=== PATIENT | female | born 1990 | race Caucasian/White ===

== ENCOUNTER 2019-04-18 07:15 | Inpatient (IN) | payer OTHER ==
[2019-04-18] MEDS: ELECTROLYTE-148 SOLN 1,000 ML IV SCH ×2 (08:00→15:47)
[2019-04-18] MEDS ORDERED: OXYTOCIN 30 UNITS in 0.9% NS 30 UNIT/500 ML INFUS.BAG IVPB SCH (08:15)
[2019-04-18 08:42] VITALS: BMI 35.3
[2019-04-18] MEDS ORDERED: OXYTOCIN 30 UNITS in 0.9% NS 30 UNIT/500 ML INFUS.BAG IVPB ONE (08:43)
--- NOTE | 2019-04-18 08:51 | HP ---
Past Medical History - Admission Chief Complaint: Here for induction. History of Present Illness: 28 y/y with SIUP at 40 weeks by sonogram here today for scheduled induction. complicated only by maternal obesity. Pt 2-3cm dilated in office on Tuesday. GBS negative. HIV neg. +FM no VB/LOF/Ctx. History Source: Patient, Medical Record Limitations to Obtaining History: No Limitations - Past Medical History Cardiovascular: No: HTN Pulmonary: No: Asthma Hepatobiliary: No: Hepatitis B, Hepatitis C Renal/: No: UTI Reproductive: No: Ectopic , Fibroids, PID, Polycystic Ovary Syndrome ...: 1 ...Para: 0 ...Term: 0 ...: 0 ...Spon : 0 ...Induced : 0 ...Multiple Gestation: 0 ...LMP: 07/02/18 ... Weeks Gestation by Dates: 41.3 ...EDC by Dates: 04/08/19 ...EDC by Sono: 04/20/19 Heme/Onc: No: Anemia Infectious Disease: No: STD's Psych: No: Anxiety, Bipolar, Depression - Past Surgical History Past Surgical History: Yes: None Hx Myomectomy: No Hx Transabdominal Cerclage: No - Smoking History Smoking history: Never smoked Have you smoked in the past 12 months: No - Alcohol/Substance Use Hx Alcohol Use: No History of Substance Use: reports: None - Social History Usual Living Arrangement: Yes: With Spouse ADL: Independent History of Recent Travel: No Home Medications - Allergies Allergies/Adverse Reactions: Allergies Allergy/AdvReac Type Severity Reaction Status Date / Time No Known Allergies Allergy Verified 04/18/19 08:04 - Home Medications Home Medications: Ambulatory Orders NK [No Known Home Medication] 04/18/19 Review of Systems - Review of Systems Constitutional: reports: No Symptoms Eyes: reports: No Symptoms HENT: reports: No Symptoms Neck: reports: No Symptoms Cardiovascular: reports: No Symptoms Respiratory: reports: No Symptoms Gastrointestinal: reports: No Symptoms Genitourinary: reports: No Symptoms Breasts: reports: No Symptoms Reported Musculoskeletal: reports: No Symptoms Integumentary: reports: No Symptoms Neurological: reports: No Symptoms Endocrine: reports: No Symptoms Hematology/Lymphatic: reports: No Symptoms Psychiatric: reports: No Symptoms Physical Exam - Maternity Vital Signs: Vital Signs Temperature 98.0 F 04/18/19 08:00 Pulse Rate 73 04/18/19 08:00 Respiratory Rate 20 04/18/19 08:00 Blood Pressure 101/62 04/18/19 08:00 O2 Sat by Pulse Oximetry (%) Constitutional: Yes: Well Nourished, No Distress, Calm Eyes: Yes: Conjunctiva Clear, EOM Intact HENT: Yes: Atraumatic Neck: Yes: Supple, Trachea Midline Cardiovascular: Yes: Regular Rate and Rhythm Lungs: Clear to auscultation - Abdominal Exam/OB Number of Fetuses: Single Presentation: Vertex Category: I Accelerations: Uniform Decelerations: None - Vaginal Exam/OB Vaginal Bleediing: No Dilatation (cm): 3 Effacement (%): 70 Amniotic Membrane Status: Intact Presentation: Vertex/Position - Physical Exam Psychiatric: Yes: Alert, Oriented Hemorrhage Risk Assessment - Risk Factors Medium Risk Factors: Yes: None High Risk Factors: Yes: None Risk Score: 1 Risk Level: Medium Risk Problem List - Problems (1) Term Code(s): Z34.90 - ENCNTR FOR SUPRVSN OF NORMAL , UNSP, UNSP TRIMESTER (2) Obesity affecting Code(s): O99.210 - OBESITY COMPLICATING , UNSPECIFIED TRIMESTER Assessment/Plan 28 y/o with SIUP at 40 weeks here for induction of labor AFVSS FHST cat 1 start pitocin GBS negative
[2019-04-18 09:34] LABS: BASO % 0.4 % (0-2.0); EOS % 1.7 % (0-4.5); HEMATOCRIT 30.8 % (32.4-45.2); LYMPH % 19.1 % (8-40); MCHC 32.6 g/dl (32.0-36.0); MEAN CELL VOLUME 82.7 fl (80-96); MEAN PLT VOLUME 10.1 fl (7.5-11.1); MONO % 7.9 % (3.8-10.2); NEUT % 70.9 % (42.8-82.8); PLATELET COUNT 164 K/MM3 (134-434); RBC 3.72 M/mm3 (3.60-5.2); RDW 17.5 % (11.6-15.6); WHITE BLOOD COUNT 6.8 K/mm3 (4.0-10.0)
[2019-04-18 09:49] LABS: BLOOD UREA NITROGEN 8.8 mg/dL (7-18); CALCIUM 8.4 mg/dL (8.5-10.1); CREATININE 0.6 mg/dL (0.55-1.3); POTASSIUM 3.8 mmol/L (3.5-5.1)
[2019-04-18 09:56] LABS: INR 0.89 (0.83-1.09); PROTHROMBIN TIME (PATIENT) 10.5 SEC (9.7-13.0)
[2019-04-18 09:59] LABS: ACTIVATED PTT 30.1 SECONDS (25.2-36.5)
[2019-04-18] MEDS: PROMETHAZINE HCL 25 MG/1 ML VIAL IVPUSH ONE ×2 (15:00→15:20)
[2019-04-18] MEDS ORDERED: PROMETHAZINE HCL 25 MG/1 ML VIAL ONE (15:18)
[2019-04-18] MEDS ORDERED: BUTORPHANOL TARTRATE 1 MG/ML VIAL ONE ×2 (15:18)
[2019-04-18] MEDS ORDERED: BUTORPHANOL TARTRATE 1 MG/ML VIAL IVPB ONE (15:46)
[2019-04-18] MEDS ORDERED: FENTANYL/BUPIVACAINE/NS/PF - PCEA - 50 ML DISP.SYRIN EP ONE (19:50)
[2019-04-18] MEDS ORDERED: NALOXONE HCL 0.4 MG/ML VIAL IVPUSH PRN (20:30)
[2019-04-18] MEDS ORDERED: FENTANYL/BUPIVACAINE/NS/PF - PCEA - 50 ML DISP.SYRIN EP SCH (20:30)
--- NOTE | 2019-04-18 22:01 | PN ---
Ante-Partal Exam - Subjective Subjective: Pt feeling comfortable with epidural. Vital Signs: Vital Signs Temperature 99.4 F 04/18/19 21:00 Pulse Rate 82 04/18/19 20:30 Respiratory Rate 18 04/18/19 20:30 Blood Pressure 117/64 04/18/19 20:30 O2 Sat by Pulse Oximetry (%) 99 04/18/19 20:30 Bleeding: Yes Bleeding Description: Mild Headache: No Visual changes: No Right upper quadrant pain: No Pain (scale 1-10): 0 - Contractions Contractions: Yes Regularity: Regular - Exam during Labor Heart Rate: 125 Variability: Moderate Category: I Monitor Accelerations: Present Monitor Decelerations: Early Exam: Vaginal Dilatation (cm): 6 Effacement (%): 90 Amniotic Membrane Status: Ruptured Presentation: Vertex Station: -1 - Assessment/Plan Assessment/Plan: 28 y/o P0 with SIUP at 40 weeks IOL FHTS cat 1 continue pitocin active management
[2019-04-19] MEDS ORDERED: FENTANYL/BUPIVACAINE/NS/PF - PCEA - 50 ML DISP.SYRIN EP ONE ×3 (00:49→10:21)
--- NOTE | 2019-04-19 04:42 | PN ---
Ante-Partal Exam - Subjective Subjective: Pt comfortable. Vital Signs: Vital Signs Temperature 98.3 F 04/19/19 03:00 Pulse Rate 74 04/19/19 03:30 Respiratory Rate 18 04/19/19 03:30 Blood Pressure 117/65 04/19/19 03:30 O2 Sat by Pulse Oximetry (%) 100 04/19/19 03:30 Bleeding: Yes (consistent with bloody show) Headache: No Visual changes: No Right upper quadrant pain: No Pain (scale 1-10): 145 - Contractions Contractions: Yes Regularity: Regular Intensity: Moderate - Exam during Labor Variability: Moderate Category: II Monitor Accelerations: Present Monitor Decelerations: Late (nonrecurrent prior to pushing) Exam: Vaginal Dilatation (cm): 8 Effacement (%): 90 Presentation: Vertex Station: +1 - Assessment/Plan Assessment/Plan: 28 y/o with SIUP at 40 weks, labor induction FHTS cat 2 for now, has been category 1 up until about 30 mins ago if needed will stop pitocin continue active management recheck at 0630
[2019-04-19] MEDS ORDERED: AMPICILLIN SODIUM 2 GM VIAL ONE (07:00)
[2019-04-19] MEDS ORDERED: AMPICILLIN - 2 GM in DEXTROSE 5%-WATER 100 ML IVPB ONE (07:45)
--- NOTE | 2019-04-19 09:21 | PN ---
Ante-Partal Exam - Subjective Subjective: Pt comfortable. Feeling some pressure. Vital Signs: Vital Signs Temperature 98.3 F 04/19/19 06:00 Pulse Rate 70 04/19/19 07:00 Respiratory Rate 18 04/19/19 07:00 Blood Pressure 111/67 04/19/19 07:00 O2 Sat by Pulse Oximetry (%) 100 04/19/19 07:00 Bleeding: Yes Bleeding Description: Mild Headache: No Visual changes: No Right upper quadrant pain: No - Contractions Contractions: Yes Regularity: Regular Intensity: Mild/Mod - Exam during Labor Heart Rate: 145 Variability: Moderate Category: II Monitor Accelerations: Present Monitor Decelerations: Late (nonrecurrent) Exam: Vaginal Dilatation (cm): 8.5 Effacement (%): 90 Amniotic Membrane Status: Ruptured Presentation: Vertex Station: 0 - Assessment/Plan Assessment/Plan: Continue with active management anticipate if FHTS don't improve (if late decelerations continue) and pt isn't making progress may consider c section
[2019-04-19] MEDS: ELECTROLYTE-148 SOLN 1,000 ML IV SCH (09:30)
[2019-04-19] MEDS ORDERED: AMPICILLIN SODIUM 1 GM VIAL ONE (11:00)
[2019-04-19] MEDS ORDERED: AMPICILLIN - 1 GM in SODIUM CHLORIDE 100 ML IVPB SCH (11:26)
[2019-04-19] MEDS: OXYTOCIN 20 UNITS in 0.9% NS 20 UNIT/1,000 ML INFUS.BAG IV SCH (11:30)
[2019-04-19] MEDS ORDERED: LIDOCAINE HCL 1% PRESERVATIVE FREE - 30ML VIAL ONE (11:35)
[2019-04-19] MEDS ORDERED: METHYLERGONOVINE MALEATE 0.2 MG/1 ML AMP IM PRN (11:55)
[2019-04-19] MEDS ORDERED: BENZOCAINE 28 GM HEMORRHOIDAL OINTMENT TP PRN (11:55)
[2019-04-19] MEDS ORDERED: BENZOCAINE 20% 57 GM BOTTLE TP PRN (11:55)
[2019-04-19] MEDS ORDERED: BISACODYL 10 MG SUPP.RECT RC PRN (11:55)
[2019-04-19] MEDS ORDERED: WITCH HAZEL 50% (TUCKS) 40 PAD/JAR PAD TP PRN (11:55)
--- NOTE | 2019-04-19 11:55 | PN ---
Delivery - Delivery Vaginal Delivery: Shoulder/Difficult (Anterior shoulder (left) delivered, did not appear to require extra downward traction/pressure, however when left shoulder came under pubic bone, a click was heard. After delivery, a left clavicular fracture was suspected.) Type of Anesthesia: Local, Epidural Episiotomy/Laceration: 2nd degree EBL (cc): 300 Delivery, Single - Stages of Labor Date of Delivery: 04/19/19 Date Placenta Delivered: 04/19/19 Placenta: Yes: Spontaneous - Condition of Infant Certified Juvenile Probation Officer/Chief Cloth Finishing Range Operator Present: No Gender: Female Position: Right, OA - 1 Minute Total Score: 9 5 Minutes Total Score: 9 - Feeding Plan Initial Plan: Elected not to breastfeed exclusively throughout hospitalization Remarks - Remarks Remarks: Spontaneous from NICK[place] position anterior shoudler (left) delivered, did not appear to need any additional or excess downward pressure/traction, however upon delivery of left shoulder a click was heard, upon examination of baby a left clavicular fracture was suspected. This was discusse with patient, , patient's mother in detail , will get Xray to confirm and follow up with neonatology/massage coordinator for recommendations on management. Baby moving both arms normally after delivery. Questions answered immediately after delivery regarding this. After anterior shoulder delivered, remainder of baby delivered with ease, 3vc noted, clamped and cut. placenta delivered in tact, spontaneously 2nd degree laceration repaired with 2-0 chromic in usual fashion sponge and needle count correct after delivery mom stable
[2019-04-19] MEDS ORDERED: IBUPROFEN 600 MG TABLET (FP) PO ONE (12:17)
[2019-04-19] MEDS ORDERED: ACETAMINOPHEN 325 MG TABLET (FP) ONE (12:17)
[2019-04-19] MEDS: IBUPROFEN 600 MG TABLET (FP) PO PRN ×2 (12:20→21:34)
[2019-04-19] MEDS: ACETAMINOPHEN 325 MG TABLET (FP) PO PRN ×2 (12:20→21:33)
[2019-04-19] MEDS: PRENATAL VITAMINS W/ FOLIC ACID TABLET (FP) PO SCH (12:45)
[2019-04-19] MEDS ORDERED: OXYTOCIN 20 UNITS in 0.9% NS 20 UNIT/1,000 ML INFUS.BAG IV ONE (13:34)
--- NOTE | 2019-04-20 03:43 | PN ---
Post Progress Note - Subjective Subjective: 28 yo Para 1 status post vaginal delivery, seen and evaluated. Doing well. Post Day: 1 Type of Delivery: Vital Signs: Vital Signs Temperature 98 F 04/20/19 02:00 Pulse Rate 72 04/20/19 02:00 Respiratory Rate 18 04/20/19 02:00 Blood Pressure 98/66 04/19/19 22:00 O2 Sat by Pulse Oximetry (%) 99 04/19/19 12:45 Breast Exam: Yes: Soft Uterus: Yes: Fundus Firm Abdomen/GI: Yes: Abdomen soft, Tolerating PO Lochia: Yes: Rubra Lochia, amount: Moderate Extremities: Yes: Calves non-tender Activity: Ambulating - Labs Labs: CBC WBC 6.8 K/mm3 (4.0-10.0) 04/18/19 08:26 RBC 3.72 M/mm3 (3.60-5.2) 04/18/19 08:26 Hgb 10.0 GM/dL (10.7-15.3) L 04/18/19 08:26 Hct 30.8 % (32.4-45.2) L 04/18/19 08:26 MCV 82.7 fl (80-96) 04/18/19 08:26 MCH 27.0 pg (25.7-33.7) 04/18/19 08:26 MCHC 32.6 g/dl (32.0-36.0) 04/18/19 08:26 RDW 17.5 % (11.6-15.6) H 04/18/19 08:26 Plt Count 164 K/MM3 (134-434) 04/18/19 08:26 MPV 10.1 fl (7.5-11.1) 04/18/19 08:26 Absolute Neuts (auto) 4.8 K/mm3 (1.5-8.0) 04/18/19 08:26 Neutrophils % 70.9 % (42.8-82.8) 04/18/19 08:26 Lymphocytes % 19.1 % (8-40) 04/18/19 08:26 Monocytes % 7.9 % (3.8-10.2) 04/18/19 08:26 Eosinophils % 1.7 % (0-4.5) 04/18/19 08:26 Basophils % 0.4 % (0-2.0) 04/18/19 08:26 Nucleated RBC % 0 % (0-0) 04/18/19 08:26 Problem List - Problems (1) Status post normal vaginal delivery Code(s): [id number] - Assessment/Plan Status post vaginal delivery Stable Continue routine care
[2019-04-20 08:46] LABS: BASO % 0.2 % (0-2.0); EOS % 0.6 % (0-4.5); HEMATOCRIT 27.8 % (32.4-45.2); LYMPH % 10.8 % (8-40); MCH 27.1 pg (25.7-33.7); MCHC 32.4 g/dl (32.0-36.0); MEAN CELL VOLUME 83.4 fl (80-96); MONO % 5.8 % (3.8-10.2); NEUT % 82.6 % (42.8-82.8); PLATELET COUNT 158 K/MM3 (134-434); RBC 3.34 M/mm3 (3.60-5.2); RDW 18.3 % (11.6-15.6); WHITE BLOOD COUNT 15.3 K/mm3 (4.0-10.0)
[2019-04-20] MEDS ORDERED: DIPHTH,PERTUSS(ACELL),TET 0.5 ML DISP.SYRIN IM ONE (10:00)
[2019-04-20] MEDS: PRENATAL VITAMINS W/ FOLIC ACID TABLET (FP) PO SCH (10:03)
[2019-04-20] MEDS ORDERED: SENNOSIDES/DOCUSATE COMBO (SENNA PLUS) TABLET (UD) PO PRN (22:00)
--- NOTE | 2019-04-21 09:35 | DS ---
Physical Exam-HOGSHEAD DU[employer]ER Vital Signs: Vital Signs Temperature 98.7 F 04/20/19 22:00 Pulse Rate 87 04/20/19 22:00 Respiratory Rate 18 04/20/19 22:00 Blood Pressure 116/70 04/20/19 22:00 O2 Sat by Pulse Oximetry (%) 99 04/19/19 12:45 Constitutional: Yes: Well Nourished Eyes: Yes: Conjunctiva Clear HENT: Yes: Atraumatic Neck: Yes: Supple Cardiovascular: Yes: Regular Rate and Rhythm Respiratory: Yes: Regular Gastrointestinal: Yes: Normal Bowel Sounds ...Rectal Exam: Yes: WNL Renal/: Yes: WNL Pelvis: Yes: WNL External Genitalia: Yes: Normal Vaginal Exam: Yes: Normal Cervix: Yes: Normal Uterus: Yes: Firm ....Post : Yes: Uterus firm Breast(s): Yes: WNL Musculoskeletal: Yes: WNL Extremities: Yes: WNL Neurological: Yes: Alert, Oriented ...Motor Strength: WNL Psychiatric: Yes: Alert, Oriented Labs: CBC, BMP 04/20/19 08:21 04/18/19 08:26 Delivery - Delivery Vaginal Delivery: Shoulder/Difficult (Anterior shoulder (left) delivered, did not appear to require extra downward traction/pressure, however when left shoulder came under pubic bone, a click was heard. After delivery, a left clavicular fracture was suspected.) Type of Anesthesia: Local, Epidural Episiotomy/Laceration: Perineal Extension/lac, 2nd degree EBL (cc): 300 Delivery, Single - Stages of Labor Date 1st Stage Initiatied: 04/18/19 Time 1st Stage Initiated: 15:00 Date 2nd Stage Initiated: 04/19/19 Time 2nd Stage Initiated: 11:05 Date of Delivery: 04/19/19 Time of Delivery: 11:25 Time Placenta Delivered: 11:30 Placenta: Yes: Spontaneous - Condition of Sound Installation Worker/Juvenile Court Judge Present: No Infant Gender: Female Weight: 7 lb 7 oz Position: Right, OA Total Hours ROM (Hrs/Mins): 23HRS - 1 Minute Total Score: 9 5 Minutes Total Score: 9 - Feeding Plan Initial Plan: Elected not to breastfeed exclusively throughout hospitalization Discharge Summary Reason For Visit: INDUCTION OF LABOR Current Active Problems Obesity affecting (Acute) Status post normal vaginal delivery (Acute) Term (Acute) Procedures: Principal: Normal spontaneous vaginal delivery Hospital Course: Routine care Condition: Good - Instructions Diet, Activity, Other Instructions: Regular diet No douching, no sexual intercourse x 6 weeks F/U in 6 weeks Disposition: HOME - Home Medications Comprehensive Discharge Medication List: Ambulatory Orders NK [No Known Home Medication] 04/18/19
[2019-04-21] MEDS: PRENATAL VITAMINS W/ FOLIC ACID TABLET (FP) PO SCH (09:52)
[2019-04-21 16:35] VITALS: BP 103/56; PULSE 88; TEMP 98.8
[2019-04-21] MEDS: OXYTOCIN 20 UNITS in 0.9% NS 20 UNIT/1,000 ML INFUS.BAG IV SCH (16:37)
== END 2019-04-21 14:30 | disposition home or self-care (01) | DRG 560 ==
LOC: JLDR 07:15 → J3W 04-19 14:00
PROVIDERS: ADMIT Obstetrics & Gynecology; ATTEND Obstetrics & Gynecology
PROC: 3E0R3BZ Introduction of Anesthetic Agent into Spinal Canal, Percutaneous Approach (ICD-10-PCS; 2019-04-18)
PROC: 3E033VJ Introduction of Other Hormone into Peripheral Vein, Percutaneous Approach (ICD-10-PCS; 2019-04-18)
PROC: 10E0XZZ Delivery of Products of Conception, External Approach (ICD-10-PCS; principal; 2019-04-19)
PROC: 0HQ9XZZ Repair Perineum Skin, External Approach (ICD-10-PCS; 2019-04-19)
DX: O48.0 Post-term pregnancy (principal); O64.4XX0 Obstructed labor due to shoulder presentation, not applicable or unspecified; O99.214 Obesity complicating childbirth; E66.9 Obesity, unspecified; O70.1 Second degree perineal laceration during delivery; Z3A.40 40 weeks gestation of pregnancy; Z37.0 Single live birth
CPT/HCPCS: 36415; 59409; 80048; 85025; 85610; 85730; 86593; 86850; 86900; 86901; 90715

== ENCOUNTER 2022-02-21 21:06 | Emergency (ER) | payer OTHER ==
[2022-02-21 21:15] VITALS: TEMP 97.6; BMI 32.5
[2022-02-21] MEDS ORDERED: LACTATED RINGERS SOLUTION 1000 ML INFUS.BAG IV ONE (23:23)
[2022-02-21] MEDS ORDERED: ACETAMINOPHEN 1000 MG/100 ML BAG IVPB ONE (23:23)
[2022-02-21] MEDS ORDERED: METOCLOPRAMIDE HCL INJECTION 10 MG/2 ML VIAL IVPUSH ONE (23:23)
[2022-02-22] MEDS ORDERED: ACETAMINOPHEN INJECTION 100 ML IVPB ONE (00:15)
[2022-02-22] MEDS ORDERED: METOCLOPRAMIDE HCL INJECTION 10 MG/2 ML VIAL ONE (00:15)
[2022-02-22 03:19] VITALS: BP 100/67; PULSE 67
== END 2022-02-22 03:26 | disposition home or self-care (01) ==
LOC: JER 21:06
DX: R51.9 Headache, unspecified (principal)
CPT/HCPCS: 70450-TC; 84703; 99285-25

== ENCOUNTER 2023-09-18 19:48 | Inpatient (IN) | payer OTHER ==
[2023-09-18 20:45] LABS: BASO % 0.7 % (0-2.0); EOS % 0.9 % (0-4.5); HEMATOCRIT 25.5 % (32.4-45.2); HEMOGLOBIN 7.5 GM/dL (10.7-15.3); LYMPH % 18.4 % (8-40); MCHC 29.5 g/dl (32.0-36.0); MEAN CELL VOLUME 66.2 fl (80-96); MEAN PLT VOLUME 9.5 fl (7.5-11.1); MONO % 7.5 % (3.8-10.2); NEUT % 72.5 % (42.8-82.8); PLATELET COUNT 180 10^3/uL (134-434); RBC 3.85 M/mm3 (3.60-5.2); RDW 22.9 % (11.6-15.6); WHITE BLOOD COUNT 7.9 K/mm3 (4.0-10.0)
[2023-09-18 20:47] LABS: MCH 19.5 pg (25.7-33.7)
[2023-09-18 20:52] LABS: INR 0.89 (0.83-1.09); PROTHROMBIN TIME (PATIENT) 10.3 SEC (9.7-13.0)
[2023-09-18 20:55] LABS: ACTIVATED PTT 28.2 SECONDS (25.2-36.5)
[2023-09-18] MEDS ORDERED: DINOPROSTONE 10 MG VAGINAL SUPPOSITORY VG ONE (21:00)
[2023-09-18] MEDS: ELECTROLYTE-148 SOLN 1,000 ML IV SCH (21:00)
[2023-09-18 21:06] LABS: POTASSIUM 4.6 mmol/L (3.5-5.1)
[2023-09-18 21:11] LABS: BLOOD UREA NITROGEN 10.8 mg/dL (7-18); CALCIUM 8.7 mg/dL (8.5-10.1)
[2023-09-18 21:15] LABS: CREATININE 0.5 mg/dL (0.55-1.3)
[2023-09-18 21:40] VITALS: RESP 18; BMI 36.8
[2023-09-18 22:28] LABS: ANISOCYTOSIS 3+; MACROCYTOSIS 0
[2023-09-19] MEDS ORDERED: OXYTOCIN 30 UNITS in 0.9% NS 30 UNIT/500 ML INFUS.BAG IVPB ONE (07:29)
[2023-09-19] MEDS ORDERED: OXYTOCIN 30 UNITS in 0.9% NS 30 UNIT/500 ML INFUS.BAG IVPB SCH (07:45)
[2023-09-19] MEDS ORDERED: NALOXONE HCL 0.4 MG/ML VIAL IVPUSH PRN (08:17)
[2023-09-19 08:18] LABS: BASO % 0.6 % (0-2.0); EOS % 0.8 % (0-4.5); HEMATOCRIT 34.1 % (32.4-45.2); HEMOGLOBIN 10.2 GM/dL (10.7-15.3); LYMPH % 11.7 % (8-40); MCH 20.8 pg (25.7-33.7); MEAN CELL VOLUME 69.4 fl (80-96); MEAN PLT VOLUME 9.2 fl (7.5-11.1); MONO % 5.4 % (3.8-10.2); NEUT % 81.5 % (42.8-82.8); PLATELET COUNT 172 10^3/uL (134-434); RBC 4.92 M/mm3 (3.60-5.2); WHITE BLOOD COUNT 13.6 K/mm3 (4.0-10.0)
[2023-09-19] MEDS ORDERED: BUPIVACAINE HCL/PF 0.25% (2.5MG/ML) 10 ML VIAL ONE (08:21)
[2023-09-19] MEDS ORDERED: LIDO 2%/EPI 1:200000 PRESRVFRE (20 ML SDVIAL) ONE (08:21)
[2023-09-19] MEDS ORDERED: FENTANYL/BUPIVACAINE/NS/PF - PCEA - 50 ML DISP.SYRIN EP ONE ×2 (08:24→12:41)
[2023-09-19] MEDS: FENTANYL/BUPIVACAINE/NS/PF - PCEA - 50 ML DISP.SYRIN EP SCH ×2 (08:50→12:43)
[2023-09-19] MEDS: ELECTROLYTE-148 SOLN 1,000 ML IV SCH (08:55)
[2023-09-19] MEDS ORDERED: FENTANYL CITRATE/PF 50 MCG/ML VIAL ONE ×3 (10:22→12:33)
[2023-09-19] MEDS ORDERED: OXYTOCIN 20 UNITS in 0.9% NS 20 UNIT/1,000 ML INFUS.BAG IV ONE (13:52)
[2023-09-19] MEDS ORDERED: LIDOCAINE HCL 1% PRESERVATIVE FREE - 30ML VIAL ONE (13:52)
[2023-09-19] MEDS ORDERED: BENZOCAINE 28 GM HEMORRHOIDAL OINTMENT TP PRN (15:22)
[2023-09-19] MEDS ORDERED: BISACODYL 10 MG SUPP.RECT RC PRN (15:22)
[2023-09-19] MEDS ORDERED: oxyCODONE HCL 5 MG TABLET PO PRN (15:22)
[2023-09-19] MEDS ORDERED: BENZOCAINE 20% 57 GM BOTTLE TP PRN (15:22)
[2023-09-19] MEDS ORDERED: METHYLERGONOVINE MALEATE 0.2 MG/1 ML AMP IM PRN (15:22)
[2023-09-19] MEDS ORDERED: WITCH HAZEL 50% (TUCKS) 40 PAD/JAR PAD TP PRN (15:22)
[2023-09-19] MEDS ORDERED: ACETAMINOPHEN 325 MG TABLET (FP) PO PRN (15:22)
[2023-09-19] MEDS ORDERED: OXYTOCIN 20 UNITS in 0.9% NS 20 UNIT/1,000 ML INFUS.BAG IV SCH (15:30)
[2023-09-19] MEDS: IBUPROFEN 600 MG TABLET (FP) PO PRN (16:00)
[2023-09-19] MEDS ORDERED: IBUPROFEN 600 MG TABLET (FP) PO ONE (16:01)
[2023-09-20] MEDS: IBUPROFEN 600 MG TABLET (FP) PO PRN (08:09)
[2023-09-20 08:33] LABS: BASO % 0.6 % (0-2.0); HEMATOCRIT 27.9 % (32.4-45.2); HEMOGLOBIN 8.4 GM/dL (10.7-15.3); LYMPH % 14.6 % (8-40); MCH 20.9 pg (25.7-33.7); MEAN CELL VOLUME 69.7 fl (80-96); MEAN PLT VOLUME 9.1 fl (7.5-11.1); MONO % 6.7 % (3.8-10.2); NEUT % 77.1 % (42.8-82.8); PLATELET COUNT 130 10^3/uL (134-434); RDW 23.8 % (11.6-15.6); WHITE BLOOD COUNT 12.4 K/mm3 (4.0-10.0)
[2023-09-20 09:52] LABS: ADD RBC MORPHOLOGY YES
[2023-09-20] MEDS ORDERED: SENNOSIDES/DOCUSATE COMBO (SENNA PLUS) TABLET (UD) PO PRN (22:00)
[2023-09-21] MEDS: IBUPROFEN 600 MG TABLET (FP) PO PRN (05:56)
[2023-09-21 08:46] VITALS: BP 124/75; PULSE 81; TEMP 98
== END 2023-09-21 13:40 | disposition home or self-care (01) | DRG 560 ==
LOC: JLDR 19:48 → J3W 09-19 17:20
PROVIDERS: ADMIT Specialist; ATTEND Specialist
PROC: 10E0XZZ Delivery of Products of Conception, External Approach (ICD-10-PCS; principal; 2023-09-19)
PROC: 0HQ9XZZ Repair Perineum Skin, External Approach (ICD-10-PCS; 2023-09-19)
DX: O70.0 First degree perineal laceration during delivery (principal); O66.0 Obstructed labor due to shoulder dystocia; Z3A.39 39 weeks gestation of pregnancy; Z37.0 Single live birth
CPT/HCPCS: 36415; 36430; 80048; 85025; 85610; 85730; 86780; 86850; 86900; 86901; 86922; P9038; P9058

== ENCOUNTER 2024-07-10 00:34 | Emergency (ER) | payer OTHER ==
[2024-07-10 00:48] VITALS: BP 118/78; PULSE 71; RESP 20; TEMP 98.1; BMI 32.5
[2024-07-10] MEDS ORDERED: diazePAM 5 MG TABLET ONE (01:35)
[2024-07-10] MEDS ORDERED: KETOROLAC TROMETHAMINE 30 MG/1 ML VIAL ONE (01:36)
[2024-07-10] MEDS ORDERED: LIDOCAINE 4% PATCH TP ONE (01:36)
[2024-07-10] MEDS ORDERED: ACETAMINOPHEN 325 MG TABLET (FP) ONE (01:36)
[2024-07-10] MEDS: LIDOCAINE 4% PATCH TP ONE (01:45)
[2024-07-10] MEDS: KETOROLAC TROMETHAMINE 30 MG/1 ML VIAL IM ONE (01:46)
[2024-07-10] MEDS: ACETAMINOPHEN 325 MG TABLET (FP) PO ONE (01:47)
[2024-07-10] MEDS: diazePAM 5 MG TABLET PO ONE (01:47)
[2024-07-10] MEDS: ACETAMINOPHEN 500 MG TABLET (FP) PO ONE (01:49)
[2024-07-10] MEDS ORDERED: NOREPINEPHRINE 0.9 % NACL 8 MG/250 ML BAG IVPB ONE (03:39)
[2024-07-10] MEDS ORDERED: LIDOCAINE PATCH REMOVAL MC SCH (22:00)
== END 2024-07-10 02:35 | disposition home or self-care (01) ==
LOC: JER 00:34
PROC: 3E0233Z Introduction of Anti-inflammatory into Muscle, Percutaneous Approach (ICD-10-PCS; principal; 2024-07-10)
DX: M54.2 Cervicalgia (principal); M62.838 Other muscle spasm
CPT/HCPCS: 99284-25